=== PATIENT | male | born 1955 ===

== ENCOUNTER 2017-03-01 12:46 | Emergency (ER) | payer BC ==
[2017-03-01 13:01] VITALS: RESP 18; TEMP 98.2
--- NOTE | 2017-03-01 13:26 | ED PDOC ---
Arrival/HPI - General Chief Complaint: Weakness/Neurological Deficit Time Seen by Provider: 03/01/17 13:13 Historian: Patient - History of Present Illness Narrative History of Present Illness (Text): 03/01/17 13:23 61 y.o. male who denies any significant past medical history and is on no medications who comes to the ED with complaint of progressive hoarseness of voice over the past one year and progressive clumsiness with frequent tripping and loss of balance with occasional dizziness over the past two years. He denies any headache or focal weakness or slurred speech or cp or sob or fever or n/v or weight loss or weight gain. He also described polyuria over the past two months. He has not seen a physician in a long time. Symptom Onset: Sudden Symptom Course: Unchanged Activities at Onset: Rest Context: Home Past Medical History - Provider Review Nursing Documentation Reviewed: Yes - Infectious Disease Hx of Infectious Diseases: None - Psychiatric Hx Substance Use: No - Surgical History Hx Orthopedic Surgery: Yes - Anesthesia Hx Anesthesia: No Family/Social History - Physician Review Nursing Documentation Reviewed: Yes Family/Social History: No Known Family HX Smoking Status: Unknown If Ever Smoked Hx Alcohol Use: No Hx Substance Use: No Allergies/Home Meds Allergies/Adverse Reactions: Allergies No Known Allergies Allergy (Verified 03/01/17 13:01) Home Medications: Home Meds Medication Instructions Recorded Confirmed No Known Home Med 03/01/17 03/01/17 Review of Systems - Physician Review All systems were reviewed & negative as marked: Yes - Review of Systems Constitutional: absent: Fatigue, Weight Change, Fevers ENT: Normal Respiratory: Normal. absent: SOB Cardiovascular: absent: Chest Pain, Palpitations, Orthopnea Gastrointestinal: absent: Normal, Abdominal Pain, Nausea, Vomiting Genitourinary Male: Frequency. absent: Dysuria Musculoskeletal: Normal Skin: Normal Neurological: Dizziness, Disequilibrium (occasional). absent: Headache, Focal Weakness, Gait Changes Endocrine: Polyuria. absent: Diaphoresis, Polydipsia Physical Exam Vital Signs Reviewed: Yes Vital Signs Temp Pulse Resp BP Pulse Ox 03/01/17 16:01 98.2 F 79 18 128/79 100 03/01/17 12:54 98.2 F 102 H 18 117/76 98 Temperature: Afebrile Blood Pressure: Normal Pulse: Tachycardic Respiratory Rate: Normal Appearance: Positive for: Well-Appearing, Non-Toxic, Comfortable Pain Distress: None Mental Status: Positive for: Alert and Oriented X 3 - Systems Exam Head: Present: Atraumatic, Normocephalic Pupils: Present: PERRL Extroacular Muscles: Present: EOMI Conjunctiva: Present: Normal Mouth: Present: Moist Mucous Membranes Pharnyx: Present: Normal. No: ERYTHEMA, EXUDATE Neck: Present: Normal Range of Motion Respiratory/Chest: Present: Clear to Auscultation, Good Air Exchange. No: Respiratory Distress, Accessory Muscle Use Cardiovascular: Present: Regular Rate and Rhythm, Normal S1, S2. No: Murmurs Abdomen: Present: Normal Bowel Sounds. No: Tenderness, Distention, Peritoneal Signs Back: Present: Normal Inspection Upper Extremity: Present: Normal Inspection. No: Cyanosis, Edema Lower Extremity: Present: Normal Inspection. No: Edema Neurological: Present: GCS=15, CN II-XII Intact, Speech Normal, Motor Func Grossly Intact, Normal Cerebellar Funct Skin: Present: Warm, Dry, Normal Color. No: Rashes Psychiatric: Present: Alert, Oriented x 3, Normal Insight, Normal Concentration Medical Decision Making ED Course and Treatment: 03/01/17 14:50 Impression: The patient is one with nonspecific longstanding symptoms as noted with unremarkable exam and has not seen a physician in a long time" Differential Diagnosis included but are not limited to: Brain Lesion vs other malignancy vs depression vs early signs of dementia vs metabolic abnormality Plan: -- EKG -- Chest xray -- CT brain -- CT neck soft tissue -- Urinalysis -- Labs -- Reassess and disposition Progress Notes: EKG: Ordered, reviewed, and independently interpreted the EKG. Rate : 85 BPM Rhythm : NSR Interpretation : PAC, normal intervals, normal axis, no ST/T changes Comparison : No previous EKG for comparison. chest xray: Creator : Italo Tovar MD IMPRESSION: No active disease. CT neck soft tissue: Creator : Italo Tovar MD IMPRESSION: Enlargement of the right lobe of the thyroid gland which is heterogeneous. Left lobe of the thyroid gland is also and contains a coarse elliptical shaped calcification as detailed above. Nonemergent the thyroid ultrasound followup could be performed for further evaluation of thyroid gland. CT head: Creator : Italo Tovar MD IMPRESSION: No acute intracranial hemorrhage. Mild chronic periventricular white matter ischemic changes are suspected. Moderate generalized volume loss. 03/01/17 16:39 Patient with unremarkable labs and noted findings on CT, including the abnormal thyroid appearance and volume loss; these findings were discussed with the patient who was told that he must follow up outpatient with neurology, primary care, and endocrinology for additional workup. The patient expressed understanding of the findings and said he understands the need to follow up outpatient and that he would do it. 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 No emergent findings on workup to necessitate admission. - Lab Interpretations Lab Results: 03/01/17 13:21 03/01/17 13:21 Lab Results 03/01/17 13:21: Sodium 144, Potassium 3.9, Chloride 104, Carbon Dioxide 28, Anion Gap 16, BUN 15, Creatinine 1.0, Est GFR ( Amer) > 60, Est GFR (Non- Af Amer) > 60, Random Glucose 91, Calcium 9.4, Magnesium 2.2, Total Bilirubin 1.7 H, AST 16, ALT 23, Alkaline Phosphatase 74, Lactate Dehydrogenase 291 L, Total Creatine Kinase 35, Troponin I < 0.01, Total Protein 8.1, Albumin 4.5, Globulin 3.6, Albumin/Globulin Ratio 1.3, Lipase 55 03/01/17 13:21: PT 12.0 H, INR 1.11 H, APTT 29.2 03/01/17 13:21: WBC 5.6, RBC 5.30, Hgb 15.5, Hct 45.7, MCV 86.2, MCH 29.2, MCHC 33.9, RDW 13.2, Plt Count 169, MPV 11.7 H, Gran % 56.1, Lymph % (Auto) 29.7, [place] % (Auto) 10.4 H, Eos % (Auto) 3.4, Baso % (Auto) 0.4, Gran # 3.13, Lymph # 1.7, [place] # 0.6, Eos # 0.2, Baso # 0.02 I have reviewed the lab results: Yes - RAD Interpretation Radiology Orders: 03/01/17 13:21 Brain [HEAD W/O CONTRAST] [CT] Stat NECK SOFT TISSUE W/CONTRAST [CT] Stat 03/01/17 13:22 CHEST TWO VIEWS (PA/LAT) [RAD] Stat - EKG Interpretation Interpreted by ED Physician: Yes Type: 12 lead EKG - Medication Orders Current Medication Orders: Discontinued Medications Iohexol (Omnipaque 350 100 Ml) Confirm Administered Dose 350 mg .ROUTE .STK-MED ONE Stop: 03/01/17 15:24 - Scribe Statement The provider has reviewed the documentation as recorded by the Scribe Alejandro Bazan All medical record entries made by the Scribe were at my direction and personally dictated by me. I have reviewed the chart and agree that the record accurately reflects my personal performance of the history, physical exam, medical decision making, and the department course for this patient. I have also personally directed, reviewed, and agree with the discharge instructions and disposition. Disposition/Present on Arrival - Present on Arrival Any Indicators Present on Arrival: No History of DVT/PE: No History of Uncontrolled Diabetes: No Urinary Catheter: No History of Decub. Ulcer: No History Surgical Site Infection Following: None - Disposition Have Diagnosis and Disposition been Completed?: Yes Diagnosis: Abnormal imaging of thyroid, Clumsiness Disposition: HOME/ ROUTINE Disposition Time: 16:45 Patient Plan: Discharge Condition: GOOD Additional Instructions: You must follow up with neurology, primary care, and endocrinology to workup your thyroid gland further (thyroid ultrasound needs to be arranged). Return to the emergency department if any new concerning symptoms. Referrals: Ryan Sargent DO [Staff Provider] - Follow up with primary Maddie Curtis MD [Medical Doctor] - Follow up with primary Syed Stevens MD [Staff Provider] - Follow up with primary
[2017-03-01 13:53] LABS: ADD MANUAL DIFF? NO
[2017-03-01 14:06] LABS: BASO # 0.02 K/mm3 (0.0-2.0); BASO % 0.4 % (0.0-3.0); EOS # 0.2 (0.0-0.7); EOS % 3.4 % (1.5-5.0); GRAN # 3.13 (1.4-6.5); GRAN % 56.1 % (50.0-68.0); HEMATOCRIT 45.7 % (42.0-52.0); LYMPH # 1.7 (1.2-3.4); LYMPH % 29.7 % (22.0-35.0); MEAN CELL VOLUME 86.2 fL (80.0-105.0); MEAN CORPUSCULAR HEMOGLOBIN 29.2 pg (25.0-35.0); MEAN CORPUSCULAR HGB CONC 33.9 g/dl (31.0-37.0); MEAN PLATELET VOLUME 11.7 fl (7.0-11.0); MONO # 0.6 (0.1-0.6); MONO % 10.4 % (1.0-6.0); PLATELET COUNT 169 10^3/uL (120.0-450.0); RED CELL DISTRIBUTION WIDTH 13.2 % (11.5-14.5); WHITE BLOOD COUNT 5.6 10^3/ul (4.5-11.0)
[2017-03-01 14:11] LABS: ALB/GLOB RATIO 1.3 (1.1-1.8); ALKALINE PHOSPHATASE 74 U/L (38-133); ALT/SGPT 23 U/L (7-56); AST/SGOT 16 U/L (15-59); BILIRUBIN,TOTAL 1.7 mg/dL (0.2-1.3); BLOOD UREA NITROGEN 15 mg/dL (7-21); CALCIUM 9.4 mg/dL (8.4-10.5); CARBON DIOXIDE 28 mmol/L (21-33); CHLORIDE 104 mmol/L (98-107); GFR AFRICAN-AMERICAN > 60; GLUCOSE,RANDOM 91 mg/dL (70-110); LIPASE 55 U/L (23-300); MAGNESIUM 2.2 mg/dL (1.7-2.2); POTASSIUM 3.9 mmol/L (3.6-5.0); SODIUM 144 mmol/L (132-148); TOTAL PROTEIN 8.1 g/dL (5.8-8.3)
[2017-03-01 14:17] LABS: INR 1.11 (0.93-1.08); PARTIAL THROMBOPLASTIN TIME 29.2 Seconds (23.7-30.8)
[2017-03-01 14:22] LABS: TROPONIN I < 0.01 ng/mL
--- NOTE | 2017-03-01 15:17 | CARD ---
APPROVED REPORT EKG Measurement Heart [id number] ID [id number] <Conclusion> Sinus rhythm with premature atrial complexes Otherwise normal ECG
[2017-03-01] MEDS ORDERED: Iohexol 350 MG/100 ML VIAL ONE (15:23)
--- NOTE | 2017-03-01 15:41 | CT ---
PROCEDURE: CT HEAD WITHOUT CONTRAST. HISTORY: loss of balance COMPARISON: None available. TECHNIQUE: Axial computed tomography images were obtained through the head/brain without intravenous contrast. Radiation dose: Total exam DLP = 774.23 mGy-cm. This CT exam was performed using one or more of the following dose reduction techniques: Automated exposure control, adjustment of the mA and/or kV according to patient size, and/or use of iterative reconstruction technique. FINDINGS: HEMORRHAGE: No intracranial hemorrhage. BRAIN: No mass effect or edema. No atrophy or chronic microvascular ischemic changes. There is moderate generalized volume loss evidenced by enlargement of the ventricles and sulci. VENTRICLES: No obstructive hydrocephalus CALVARIUM: No acute calvarial fractures. PARANASAL SINUSES: Mucosal thickening seen within multiple ethmoid air cells extending superiorly into the frontal sinus. . MASTOID AIR CELLS: Unremarkable as visualized. No inflammatory changes. OTHER FINDINGS: None. IMPRESSION: No acute intracranial hemorrhage. Mild chronic periventricular white matter ischemic changes are suspected. Moderate generalized volume loss.
[2017-03-01 16:02] VITALS: O2SAT 100
--- NOTE | 2017-03-01 16:06 | CT ---
PROCEDURE: CT NECK WITH CONTRAST HISTORY: hoarseness; r/o mass COMPARISON: None TECHNIQUE: CT of the neck with intravenous contrast. Coronal and sagittal reformats generated. Intravenous contrast dose: 100 cc Omnipaque 350 Radiation dose: DLP 294.02 mGy-cm This CT exam was performed using one or more of the following dose reduction techniques: Automated exposure control, adjustment of the mA and/or kV according to patient size, and/or use of iterative reconstruction technique. FINDINGS: NASOPHARYNX: Unremarkable. SUPRAHYOID NECK: The nasopharynx appears grossly unremarkable as well. There are small calcifications seen in the right palatine tonsil region likely postinflammatory. Callahan tonsils are prominent and encroach slightly medially into the airway however no peritonsillar abscess. The oral cavity structures are partially obscured by streak and beam hardening artifact arising from dental amalgam. The oral cavity structures appear grossly unremarkable. Parapharyngeal is fat spaces appear symmetric. . There is minor asymmetry of the vallecula which could be due to some encroachment of lingual tonsils however residual and or retained secretion may contribute. Free margin of the epiglottis unremarkable. INFRAHYOID NECK: Unremarkable larynx, hypopharynx, and supraglottic space. True vocal cords are symmetric. MASS: No large mass or collection GLANDS: The thyroid gland is mildly enlarged right lobe of the thyroid gland is enlarged and heterogeneous. The the left lobe is heterogeneous and contains a elliptical shaped coarse calcification that measures approximately 10.9 x 6.67 mm. Consider followup nonemergent thyroid ultrasound. Parotid and submandibular glands unremarkable. . LYMPH NODES: Multiple small nonspecific bilateral cervical lymph nodes are seen within the jugulodigastric, posterior cervical space, submandibular and submental regions bilaterally. None of these lymph nodes appear pathologically enlarged. CERVICAL SPINE: No fracture or focal lesion. Minor multilevel degenerative spondylosis of the cervical spine. Straightening of the normal cervical lordosis likely due to patient positioning in the gantry. VASCULAR STRUCTURES: Unremarkable. OTHER FINDINGS: From minor calcification medial aspect left carotid bifurcation without significant stenosis. There is asymmetry of the vertebral arteries right-sided which is larger in caliber/more dominant than the right side. Minor biapical pleural thickening and parenchymal scarring. IMPRESSION: Enlargement of the right lobe of the thyroid gland which is heterogeneous. Left lobe of the thyroid gland is also and contains a coarse elliptical shaped calcification as detailed above. Nonemergent the thyroid ultrasound followup could be performed for further evaluation of thyroid gland. See above discussion for additional findings and details.
--- NOTE | 2017-03-01 16:11 | RAD ---
HISTORY: feeling unwell COMPARISON: KeyNo prior. TECHNIQUE: Chest PA and lateral FINDINGS: LUNGS: No active pulmonary disease. PLEURA: No significant pleural effusion identified. No pneumothorax apparent. CARDIOVASCULAR: Normal. OSSEOUS STRUCTURES: Minor degenerative spondylosis of the thoracic spine. VISUALIZED UPPER ABDOMEN: Normal. OTHER FINDINGS: None. IMPRESSION: No active disease.
[2017-03-01 16:47] VITALS: BP 121/73; PULSE 80
== END 2017-03-01 16:54 | disposition home or self-care (01) ==
LOC: ED 12:46
DX: R93.8 Abnormal findings on diagnostic imaging of other specified body structures (principal)
CPT/HCPCS: 70450; 70491; 71020; 80053; 82550; 83615; 83690; 83735; 84484; 85025; 85610; 85730; 93005; 99283; Q9967